=== PATIENT | female | born 1970 | race African-American/Black ===

== ENCOUNTER 2018-12-29 23:30 | Emergency (ER) | payer OTHER ==
[~2018-12-29] VITALS: Ht 165.1 cm; Wt 68.0 kg
[2018-12-30] MEDS ORDERED: KETOROLAC 30MG/ML VIAL IV STA (02:48)
[2018-12-30] MEDS ORDERED: SODIUM CHLORIDE 0.9% 1,000 ML IV ONE (02:48)
[2018-12-30] MEDS ORDERED: ONDANSETRON HCL 4MG/2ML INJ IV STA (02:48)
[2018-12-30 03:24] LABS: CHLORIDE 97 mEq/L (98-107)
[2018-12-30 03:31] LABS: BASOPHILS % 0.2 % (0.0-2.0); HEMOGLOBIN. 12.1 g/dL (12.0-16.0); LYMPHOCYTES % 21.8 % (20.0-50.0); MEAN CORPUSCULAR HEMOGLOBIN 24.1 pg (28.0-32.0); MEAN CORPUSCULAR VOLUME 77.5 fL (81.0-99.0); MEAN PLATELET VOLUME 9.3 fl (7.4-10.4); MONOCYTES % 10.3 % (2.0-8.0); NEUTROPHILS % 67.7 % (40.0-76.0); PLATELET 342 x1000/uL (130-400); RED BLOOD CELL COUNT 5.03 mill/uL (4.2-5.4); RED CELL DISTRIBUTION WIDTH 17.2 % (11.6-14.6)
[2018-12-30 03:33] LABS: ETHANOL BLOOD < 10 mg/dL
[2018-12-30 03:56] LABS: CLARITY URINE CLOUDY (CLEAR); COLOR URINE YELLOW (YELLOW); KETONES URINE 2+ (NEGATIVE); LEUKOCYTE ESTERASE URINE NEGATIVE (NEGATIVE); NITRITE URINE NEGATIVE (NEGATIVE); OCCULT BLOOD URINE NEGATIVE (NEGATIVE); PROTEIN URINE 3+ (NEGATIVE); SPECIFIC GRAVITY URINE 1.035 (1.005-1.030)
[2018-12-30] MEDS ORDERED: ONDANSETRON HCL 4MG/2ML INJ IV NR (05:01)
[2018-12-30] MEDS ORDERED: SODIUM CHLORIDE 0.9% 1,000 ML IV NR (05:01)
[2018-12-30] MEDS ORDERED: POTASSIUM CHLORIDE 20MEQ TABLET SR PO SCH (07:00)
[2018-12-30 07:38] VITALS: BP 185/69
== END 2018-12-31 19:47 | disposition home or self-care (01) ==
LOC: ER 23:30
DX: K29.00 Acute gastritis without bleeding (principal); E11.9 Type 2 diabetes mellitus without complications; I10 Essential (primary) hypertension; F12.10 Cannabis abuse, uncomplicated
CPT/HCPCS: 71045; 96361; 96374; 96375; 96376; 99284; J1885; J2405; J7030; Z7610

== ENCOUNTER 2021-11-07 23:44 | Emergency (ER) | payer SELFPAY ==
[~2021-11-07] VITALS: Ht 165.1 cm; Wt 65.9 kg
[2021-11-08] MEDS ORDERED: ONDANSETRON HCL 4MG/2ML INJ IV STA (01:26)
[2021-11-08] MEDS ORDERED: HALOPERIDOL LACTATE 5MG/ML VIAL IM ONE (01:30)
[2021-11-08 02:13] LABS: BASOPHILS % 0.9 % (0.0-2.0); HEMATOCRIT. 37.4 % (36.0-48.0); HEMOGLOBIN. 11.9 g/dL (12.0-16.0); LYMPHOCYTES % 18.2 % (20.0-50.0); MEAN CORPUSCULAR HEMOGLOBIN 25.5 pg (28.0-32.0); MEAN CORPUSCULAR VOLUME 80.1 fL (81.0-99.0); MEAN PLATELET VOLUME 8.9 fl (7.4-10.4); MONOCYTES % 8.9 % (2.0-8.0); PLATELET 298 x1000/uL (130-400); RED BLOOD CELL COUNT 4.67 mill/uL (4.2-5.4); RED CELL DISTRIBUTION WIDTH 17.5 % (11.6-14.6)
[2021-11-08 02:26] LABS: CLARITY URINE TURBID (CLEAR); COLOR URINE YELLOW (YELLOW); KETONES URINE TRACE (NEGATIVE); LEUKOCYTE ESTERASE URINE TRACE (NEGATIVE); NITRITE URINE NEGATIVE (NEGATIVE); OCCULT BLOOD URINE TRACE (NEGATIVE); PROTEIN URINE 4+ (NEGATIVE); SPECIFIC GRAVITY URINE 1.032 (1.005-1.030)
[2021-11-08 02:27] LABS: CHLORIDE 101 mEq/L (98-107)
[2021-11-08 02:34] LABS: ETHANOL BLOOD < 10 mg/dL
[2021-11-08 02:38] VITALS: BP 180/99
[2021-11-08 02:42] LABS: *AMPHETAMINES SCREEN URINE NEGATIVE (NEGATIVE); *BARBITURATES SCREEN URINE NEGATIVE (NEGATIVE); *BENZODIAZEPINES SCREEN URINE NEGATIVE (NEGATIVE); *COCAINE SCREEN URINE NEGATIVE (NEGATIVE); CANNABINOID URINE SCREEN PRESUMTIVE POSITIVE (NEGATIVE); METHADONE URINE SCREEN NEGATIVE (NEGATIVE); OPIATES URINE SCREEN NEGATIVE (NEGATIVE); PHENCYCLIDINE URINE SCREEN NEGATIVE (NEGATIVE)
== END 2021-11-08 03:30 | disposition home or self-care (01) ==
LOC: ER 23:56
DX: R11.2 Nausea with vomiting, unspecified (principal); F12.90 Cannabis use, unspecified, uncomplicated; I10 Essential (primary) hypertension; R19.7 Diarrhea, unspecified
CPT/HCPCS: 36415; 80053; 80305; 80320; 81003; 83690; 85025; 96372; 96374; 99283; J1630; J2405; G0480